=== PATIENT | female | born 1940 | race African-American/Black ===

== ENCOUNTER 2019-09-21 02:16 | Emergency (ER) | payer MEDICARE, OTHER, MEDICAID ==
[~2019-09-21] VITALS: Ht 167.6 cm; Wt 57.0 kg
[~2019-09-21 02:16] MED LIST: ALBU6.7H INH; HYDR-523 PO; RAMI10CA19 PO
[2019-09-21] MEDS ORDERED: IBUPROFEN 600MG TABLET PO STA (03:06)
[2019-09-21] MEDS ORDERED: HYDROCODONE/ACETAMINOPHEN 5/325MG TABLET PO ONE (03:15)
[2019-09-21 04:02] LABS: BASOPHILS % 0.6 % (0.0-2.0); EOSINOPHILS % 1.1 % (0.0-5.0); HEMATOCRIT. 31.4 % (36.0-48.0); HEMOGLOBIN. 10.7 g/dL (12.0-16.0); LYMPHOCYTES % 16.1 % (20.0-50.0); MEAN CORPUSCULAR HEMOGLOBIN 27.6 pg (28.0-32.0); MEAN CORPUSCULAR VOLUME 81.1 fL (81.0-99.0); MEAN PLATELET VOLUME 8.4 fl (7.4-10.4); MONOCYTES % 9.3 % (2.0-8.0); NEUTROPHILS % 72.9 % (40.0-76.0); PLATELET 273 x1000/uL (130-400); RED BLOOD CELL COUNT 3.87 mill/uL (4.2-5.4); RED CELL DISTRIBUTION WIDTH 14.7 % (11.6-14.6)
[2019-09-21 04:06] LABS: CHLORIDE 114 mEq/L (98-107)
[2019-09-21] MEDS ORDERED: HYDRALAZINE 20MG/ML VIAL IV ONE (04:15)
[2019-09-21] MEDS ORDERED: CLONIDINE 0.2MG TABLET PO ONE (05:00)
[2019-09-21 06:56] VITALS: BP 149/98
== END 2019-09-21 06:57 | disposition home or self-care (01) ==
LOC: ER 02:27
DX: S93.402A Sprain of unspecified ligament of left ankle, initial encounter (principal); I10 Essential (primary) hypertension; J45.909 Unspecified asthma, uncomplicated; I11.9 Hypertensive heart disease without heart failure; Z90.710 Acquired absence of both cervix and uterus; Z98.890 Other specified postprocedural states; Z79.899 Other long term (current) drug therapy; W18.39XA Other fall on same level, initial encounter; Y93.89 Activity, other specified; Y92.89 Other specified places as the place of occurrence of the external cause; Y99.8 Other external cause status
CPT/HCPCS: 36415; 73610; 73620; 80053; 83880; 84484; 85025; 93005; 96374; 99284; J0360